=== PATIENT | female | born 1955 | race Caucasian/White ===

== ENCOUNTER → 2018-01-12 11:37 | Outpatient (CLI) | payer OTHER, SELFPAY ==
--- NOTE | 2018-01-12 | DI.RAD.S_ITS ---
PROCEDURE: XR HIP W PEL IF DONE RT 2V INDICATIONS: PAIN IN RIGHT HIP TECHNIQUE: AP pelvis with lateral view(s) of the right hip(s). COMPARISON: [facility], , PELVIS W/LAT HIP (LT) (PNL), 06/15/2007, 18:07. FINDINGS: Bones: No fractures or dislocations. Pelvic ring appears intact. No suspicious bony lesions. Bilateral total hip arthroplasties evident. Degenerative disc disease lower lumbar spine. Soft tissues: The visualized bowel gas pattern is normal. No suspicious soft tissue calcifications. IMPRESSION: 1. Bilateral total hip arthroplasty. No evidence of loosening or dislocation. Dictated by: Malcom Wiggins M.D. on 01/12/2018 at 13:27 Approved by: Malcom Wiggins M.D. on 01/12/2018 at 13:29
--- NOTE | 2018-01-12 | DI.RAD.S_ITS ---
PROCEDURE: XR KNEE RT 1TO2V INDICATIONS: PAIN IN RIGHT KNEE TECHNIQUE: 2 views of the knee were acquired. COMPARISON: None. FINDINGS: Bones: No fractures or dislocations. No suspicious bony lesions. Degenerative joint disease with narrowing and marginal spurring is most severe at the femoral patellar compartment, moderate in the weightbearing compartments. Soft tissues: No joint effusion. No suspicious soft tissue calcifications. IMPRESSION: Tricompartmental osteoarthritis. Dictated by: Malcom Wiggins M.D. on 01/12/2018 at 12:30 Approved by: Malcom Wiggins M.D. on 01/12/2018 at 12:31
== END ==
PROVIDERS: Family Provider Internal Medicine; PCP Internal Medicine; Visit Provider Physician Assistant
DX: M17.11 Unilateral primary osteoarthritis, right knee (principal); M25.551 Pain in right hip; M25.561 Pain in right knee; Z96.643 Presence of artificial hip joint, bilateral
CPT/HCPCS: 73502; 73560

== ENCOUNTER → 2018-01-23 09:13 | Outpatient (CLI) | payer OTHER, SELFPAY ==
[2018-01-23 10:12] LABS: Add Manual Diff / Slide Review NO; Basophils Percent Auto 0.7 % (0-2); Eosinophils Percent Auto 11.3 % (2-4); Hematocrit 39.8 % (36-46); Hemoglobin 13.3 g/dL (12.0-16.0); Mean Corpuscular HGB Conc 33.4 % (30-36); Mean Corpuscular Hemoglobin 29.8 PG (26-34); Mean Corpuscular Volume 89.2 fL (80-100); Monocytes Percent Auto 7.2 % (3-14); Neutrophils Absolute Auto 3300 /uL (3000-5900); Neutrophils Percent Auto 45.8 % (50-75); Platelet Count 201 X10^3/uL (150-400); Red Blood Cell Count 4.46 X10^6/uL (4.0-5.2); Red Cell Distribution Width 14.9 % (11.6-14.8); White Blood Cell Count 7.1 X10^3/uL (4.5-11.0)
[2018-01-23 10:39] LABS: Alanine Aminotransferase 50 IU/L (9-52); Albumin 3.8 g/dL (3.5-5.0); Albumin Globulin Ratio 1.3 (1.0-2.8); Alkaline Phosphatase 53 U/L (38-126); Aspartate Aminotransferase 50 IU/L (14-36); Bilirubin Total 0.4 mg/dL (0.2-1.3); Blood Urea Nitrogen 20 mg/dL (7-17); Calcium 10.1 mg/dL (8.4-10.2); Carbon Dioxide 29 mmol/L (22-32); Chloride 103 mmol/L (98-107); Estimated Glomerular Filt Rate > 60.0 mL/min (>60); Globulin 2.9 g/dL (1.7-4.1); Glucose 196 mg/dL (80-110); HEMOLYSIS < 15 (0-50); Potassium 4.2 mmol/L (3.4-5.1); Sodium 140 mmol/L (137-145); Total Protein 6.7 g/dL (6.3-8.2)
[2018-01-23 11:22] LABS: Hemoglobin A1C% w Est Avg Glu 8.5 % (4.0-6.0)
== END ==
PROVIDERS: PCP Internal Medicine; Visit Provider Internal Medicine
DX: I10 Essential (primary) hypertension (principal); E11.9 Type 2 diabetes mellitus without complications
CPT/HCPCS: 36415; 80053; 83036; 85025

== ENCOUNTER → 2018-04-17 09:38 | Outpatient (CLI) | payer OTHER, SELFPAY ==
--- NOTE | 2018-04-17 20:33 | DI.ECHO.S_ITS ---
Echocardiogram Report + + :Name: ARTURO WAITE Study Date: 04/17/2018 Height: 64 in : :[facility] Weight: 360 lb : : Gender: Female BSA: 2.5 m2 : :: 1955 Age: 62 yrs BP: 118/70 mmHg: :Reason For Study: Edema : : Performed By: Bel Torres : :Referring: YORDAN GEIGER : + + Interpretation Summary The study quality was technically difficult. The left ventricle size and wall thickness is normal. The LV is hyperdynamic. The echo findings are consistent with mild dynamic left ventricular intracavitary obstruction. The intracavitary gradient is 29 mmHg at baseline (unchanged from 2012) and slightly increases with Valsalva to 37 mmHg. The right ventricle grossly appears normal in size with probable normal systolic function. No hemodynamically significant valvular abnormality. -Comparison is made with the echocardiogram report of 07-09-12. -No significant change. Procedure: A two-dimensional transthoracic echocardiogram with color flow and Doppler was performed. The study quality was technically difficult. Comparison is made with the echocardiogram of 07-09-12. Patient was in pain due to Arthritis so exam was ended early and Definity was not used. The patient was in normal sinus rhythm during the exam. Left Ventricle: The left ventricle is normal in size. There is normal left ventricular wall thickness. The echo findings are consistent with mild dynamic left ventricular intracavitary obstruction. The intracavitary gradient is 29 mmHg at baseline and slightly increases with Valsalva to 37 mmHg. The ejection fraction is estimated to be 65-70%. There are no obvious focal wall motion abnormalities noted but poor endocardial definition reduces the sensitivity for the detection of such. Diastolic function could not be accurately assessed due to unobtainable data. Right Ventricle: The right ventricle grossly appears normal in size with probable normal systolic function. Atria: The left atrial size is normal. Right atrial size is normal. Chiari network (normal variant) is noted. The interatrial septum is intact with no evidence for an atrial septal defect. Mitral Valve: The mitral valve is not well visualized. There is mild mitral annular calcification. There is no mitral regurgitation noted. Aortic Valve: The aortic valve opens well. No aortic regurgitation is present. Tricuspid Valve: The tricuspid valve is normal in structure and function. No tricuspid regurgitation. Pulmonic Valve: The pulmonic valve is not well visualized. Great Vessels: The aortic root is normal size. The ascending aorta could not be visualized. The aortic arch is at the upper limits of normal in size. The IVC is of normal diameter and collapses greater than 50% with a sniff. This suggests a low right atrial pressure of 3 mm Hg. Pericardium/ Pleura There is no pericardial effusion. There is no pleural effusion. MMode/2D Measurements & Calculations LVIDd: 5.1 cm Ao root diam: 3.0 cm LVIDs: 2.3 cm Aortic Jxn: 2.4 cm FS: 54.8 % Ao Arch Diam (Prox Trans): 3.0 cm EPSS: 0.45 cm IVSd: 0.89 cm LVPWd: 0.78 cm LV patton. diameter/BSA (cm/m^2): 2.0 LV sys. diameter/BSA (cm/m^2): 0.92 LA dimension: 4.2 cm RA long axis: 4.2 cm LA A2 area: 20.7 cm2 RA area: 14.6 cm2 LA A4 area: 24.7 cm2 RA vol: 43.5 ml LA length (vol): 5.3 cm RA : 17.3 ml/m2 LA vol: 81.3 ml IVC diam: 1.8 cm LA vol index: 32.4 ml/m2 RVDd major: 5.0 cm RVD1 (basal): 3.5 cm RVD2 (mid): 3.5 cm Doppler Measurements & Calculations Ao V2 max: 209.9 cm/sec MV E max ronnell: 112.0 cm/sec Ao V2 mean: 141.8 cm/sec MV A max ronnell: 151.3 cm/sec Ao max P.6 mmHg MV E/A: 0.74 Ao mean P.1 mmHg Med Peak E' Ronnell: 9.4 cm/sec Ao V2 VTI: 38.5 cm E/E' med: 11.9 Lat Peak E' Ronnell: 9.1 cm/sec E/E' lat: 12.3 E/e' average: 12.1 MV dec time: 0.15 sec MV P1/2t: 42.5 msec MV P1/2t max ronnell: 104.4 cm/sec MVA(P1/2t): 5.2 cm2 _ Electronically signed by: Lionel Hopkins M.D. on Reading Physician:04/17/2018 08:33 PM
== END ==
PROVIDERS: Family Provider Internal Medicine; PCP Internal Medicine; Visit Provider Internal Medicine
DX: I50.40 Unspecified combined systolic (congestive) and diastolic (congestive) heart failure (principal)
CPT/HCPCS: C8929

== ENCOUNTER → 2020-03-23 08:53 | Outpatient (CLI) | payer MEDICARE, SELFPAY ==
--- NOTE | 2020-03-23 | DI.ECHO.S_ITS ---
[facility] +---------+ : : [address] : : : : [id number] : : : : Phone: [phone] Echocardiogram Report + + :Name: ARTURO WAITE Study Date: 03/23/2020 Height: 64 in : :[facility] Weight: 350 lb : : Gender: Female BSA: 2.5 m2 : :: 1955 Age: 64 yrs BP: 172/81 mmHg: :Reason For Study: DYSPNEA : :Ordering Physician: FELY, : :YORDAN Performed By: Samantha Snyder : :Referring: YORDAN GEIGER : + + Interpretation Summary This is a technically difficult study, particularly as it pertains to parasternal views. Next time I recommend Zscaler echocontrast. Normal sinus rhythm. Normal LV size, mild concentric LVH; normal wall motion and LV systolic function. EF is 60-65%. Moderate MAC; otherwise no significant valvular abnormalities. Compared to prior study 04/17/2018 LVOT obstruction is no longer seen. Procedure: A two-dimensional transthoracic echocardiogram with color flow and Doppler was performed. The study quality was technically difficult. Images from the parasternal window were difficult to obtain and are suboptimal in quality. Most of the acoustic windows were suboptimal, but the best imaging was obtained from the apical window. Left Ventricle: The left ventricle is normal in size. Left ventricular wall thickness is mildly increased. The ejection fraction is estimated to be 60- 65%. Diastolic parameters suggest probable normal left ventricular diastolic function and normal filling pressures. Right Ventricle: The right ventricle is normal in size and function. Atria: Both atria are normal in size. There is no Doppler evidence for an interatrial shunt. Mitral Valve: There is moderate mitral annular calcification. There is trace mitral regurgitation. Aortic Valve: The aortic valve is not well visualized. There is no aortic valve stenosis. No aortic regurgitation is present. Tricuspid Valve: The tricuspid valve is not well visualized, but is grossly normal. There is trace tricuspid regurgitation. Pulmonary artery pressures cannot be estimated because of the lack of a measurable TR jet velocity but the IVC suggests a CVP of around 3 mmHg. Pulmonic Valve: The pulmonic valve is not well visualized. There is no pulmonic valvular regurgitation. Great Vessels: The aortic root is not well visualized. The ascending aorta could not be visualized. The IVC is of normal diameter and collapses greater than 50% with a sniff. This suggests a low right atrial pressure of 3 mm Hg. Pericardium/ Pleura There is no pericardial effusion. There is no pleural effusion. MMode/2D Measurements & Calculations LVIDd: 4.2 cm LVOT diam: 2.0 cm LVIDs: 2.7 cm Ao Arch Diam (Prox Trans): 3.1 cm FS: 35.4 % IVSd: 0.98 cm LVPWd: 1.3 cm LV patton. diameter/BSA (cm/m^2): 1.7 LV sys. diameter/BSA (cm/m^2): 1.1 LA A2 area: 18.3 cm2 RA long axis: 4.5 cm LA A4 area: 16.2 cm2 RA area: 12.2 cm2 LA length (vol): 5.2 cm RA vol: 28.3 ml LA vol: 48.1 ml RA : 11.4 ml/m2 LA vol index: 19.4 ml/m2 IVC diam: 1.2 cm RVD1 (basal): 3.2 cm TAPSE: 2.4 cm Doppler Measurements & Calculations Ao V2 max: 166.6 cm/sec LVOT Max Ronnell: 107.6 cm/sec Ao V2 mean: 112.5 cm/sec LV V1 max P.6 mmHg Ao max P.1 mmHg LV V1 VTI: 25.9 cm Ao mean P.6 mmHg CLAY(I,D): 2.3 cm2 Ao V2 VTI: 36.4 cm CLAY(V,D): 2.1 cm2 sev ratio: 0.71 CLAY indexed to BSA (cm^2/m^2): 0.91 MV E max ronnell: 98.3 cm/sec PA V2 max: 102.1 cm/sec MV A max ronnell: 125.7 cm/sec PA V2 mean: 67.2 cm/sec MV E/A: 0.78 PA mean P.1 mmHg Med Peak E' Ronnell: 6.9 cm/sec PA pr(Accel): 27.6 mmHg E/E' med: 14.2 Lat Peak E' Ronnell: 7.2 cm/sec E/E' lat: 13.7 E/e' average: 14.0 MV dec time: 0.27 sec SV(LVOT): 82.1 ml Electronically signed by: Caroline Martinez M.D. on Reading Physician:03/24/2020 02:03 AM
== END ==
PROVIDERS: Family Provider Internal Medicine; PCP Internal Medicine; Referring Provider Internal Medicine; Visit Provider Internal Medicine
DX: R06.00 Dyspnea, unspecified (principal)
CPT/HCPCS: 93306

== ENCOUNTER → 2021-01-09 10:45 | Outpatient (CLI) | payer MEDICARE, SELFPAY ==
--- NOTE | 2021-01-09 | DI.US.S_ITS ---
PROCEDURE: US CAROTID DOPPLER BI INDICATIONS: RETINAL HEMORRHAGE OF BOTH EYES TECHNIQUE: Color and pulse Doppler interrogation was performed of both carotid systems, with image documentation and velocity measurements. COMPARISON: None. FINDINGS: Stenosis calculations are based on SRU (Society of Radiologists in Ultrasound) criteria. The flow velocities and the arterial waveforms are normal within both carotid arterial systems. Atherosclerotic plaque is seen on both sides, left worse than right. The estimated degree of internal carotid artery stenosis is less than 50%. Antegrade flow is confirmed within both vertebral arteries. This study is limited by body habitus. The right brachial blood pressure measures 222/91. The left brachial blood pressure measures 188/87. IMPRESSION: No hemodynamically significant stenosis is seen. Atherosclerotic plaque is noted bilaterally. Arterial hypertension measured at the time of this study. Dictated by: Maury Holliday M.D. on 01/09/2021 at 12:31 Approved by: Maury Holliday M.D. on 01/09/2021 at 12:32
== END ==
PROVIDERS: Family Provider Internal Medicine; PCP Internal Medicine; Referring Provider Internal Medicine; Visit Provider Internal Medicine
DX: H35.63 Retinal hemorrhage, bilateral (principal); I65.23 Occlusion and stenosis of bilateral carotid arteries
CPT/HCPCS: 93880

== ENCOUNTER → 2022-01-08 11:09 | Outpatient (CLI) | payer OTHER, SELFPAY ==
--- NOTE | 2022-01-08 | DI.RAD.S_ITS ---
PROCEDURE: XR SHOULDER RT MIN 2V INDICATIONS: Other chronic pain TECHNIQUE: Two views of the shoulder were acquired. COMPARISON: None. FINDINGS: Bones: No acute fractures or dislocations. No suspicious bony lesions. Visualized ribs appear intact. Moderate acromioclavicular joint osteoarthrosis. Soft tissues: No suspicious soft tissue calcifications. IMPRESSION: Moderate acromioclavicular osteoarthrosis. No acute osseous abnormality. If the symptoms persist, consider cross sectional imaging such as MRI or CT for further assessment. Dictated by: Everton Anderson M.D. on 01/08/2022 at 15:24 Approved by: Everton Anderson M.D. on 01/08/2022 at 15:28
--- NOTE | 2022-01-08 | DI.RAD.S_ITS ---
PROCEDURE: XR KNEE LT 1TO2V INDICATIONS: Other chronic pain TECHNIQUE: 1 view of the knee was acquired. COMPARISON: [facility], CR, XR KNEE RT 1TO2V, 01/12/2018, 11:36. FINDINGS: Bones: No acute fractures or dislocations. No suspicious bony lesions. Severe joint space narrowing is seen at the medial femorotibial compartment with small marginal osteophytes. Marginal osteophytes are also seen at the lateral compartment without significant joint space narrowing. The anterior compartment is not well evaluated on this single view. Soft tissues: No suspicious soft tissue calcifications. IMPRESSION: Severe medial femorotibial compartment osteoarthrosis. Dictated by: Everton Anderson M.D. on 01/08/2022 at 15:31 Approved by: Everton Anderson M.D. on 01/08/2022 at 15:32
--- NOTE | 2022-01-08 | DI.RAD.S_ITS ---
PROCEDURE: XR CERVICAL SPINE 2V OR 3V INDICATIONS: Other chronic pain TECHNIQUE: 3 view(s) of the cervical spine were acquired. COMPARISON: None. FINDINGS: Bones: No acute fracture or dislocation to the C7 level. Severe degenerative changes are present from C4-C7 including intervertebral disc space narrowing, large anterior osteophytosis, and endplate sclerosis. There is grade 2 mm C3 on C4 anterolisthesis. There is loss of the expected cervical lordosis. Soft tissues: No prevertebral soft tissue swelling. IMPRESSION: Severe degenerative change and C3-4 anterolisthesis. Dictated by: Rosetta Cox M.D. on 01/08/2022 at 16:09 Approved by: Rosetta Cox M.D. on 01/08/2022 at 16:10
--- NOTE | 2022-01-08 | DI.RAD.S_ITS ---
PROCEDURE: XR KNEE RT 1TO2V INDICATIONS: Osteoarthritis TECHNIQUE: 2 views of the knee were acquired. COMPARISON: [facility], , XR KNEE RT 1TO2V, 01/12/2018, 11:36. FINDINGS: Bones: No acute fracture or dislocation. There is severe narrowing of the medial femorotibial compartment joint space with subchondral sclerosis and marginal osteophyte formation. A subchondral osteophyte is seen at the lateral femoral condyle articular surface and there are marginal osteophytes. Severe degenerative changes are seen in the anterior compartment. Soft tissues: Small joint effusion. No suspicious soft tissue calcifications. IMPRESSION: Tricompartmental osteoarthrosis is worst in the medial and anterior compartments, and appears progressed when compared to the radiographs from 01/12/2018. Dictated by: Everton Anderson M.D. on 01/08/2022 at 15:29 Approved by: Everton Anderson M.D. on 01/08/2022 at 15:30
--- NOTE | 2022-01-08 | DI.RAD.S_ITS ---
PROCEDURE: XR HIP W PEL IF DONE BIANCA MIN 4V INDICATIONS: Other chronic pain TECHNIQUE: AP pelvis with lateral view(s) of the bilateral hip(s). COMPARISON: [facility], CR, XR HIP W PEL IF DONE RT 2V, 01/12/2018, 11:36. FINDINGS: Bones: Bilateral hip arthroplasties are in appropriate position. No evidence of a femoral stem loosening. Very minor affection around the acetabular cups bilaterally. Stable mild acetabular spurring. The visible pelvis is intact. Soft tissues: The visualized bowel gas pattern is normal. No suspicious soft tissue calcifications. IMPRESSION: 1. No evidence of femoral stem loosening of either hip prosthesis. 2. No evidence of fracture or dislocation. Dictated by: Delfina Golden M.D. on 01/08/2022 at 14:17 Approved by: Delfina Golden M.D. on 01/08/2022 at 14:19
--- NOTE | 2022-01-08 | DI.RAD.S_ITS ---
PROCEDURE: XR SACROILIAC JOINT MIN 3V INDICATIONS: Other chronic pain TECHNIQUE: 3 views of the sacroiliac joints were acquired. COMPARISON: None. FINDINGS: Bones: No bony erosions or ankylosis. No suspicious bony lesions. No fractures. Bilateral hip arthroplasty noted Soft tissues: Overlying bowel gas pattern is normal. No suspicious soft tissue densities. IMPRESSION: Unremarkable sacroiliac joint radiographs Approved by: Clive Palafox M.D. on 01/08/2022 at 16:12
== END ==
PROVIDERS: Family Provider Internal Medicine; PCP Internal Medicine; Referring Provider Internal Medicine; Visit Provider Internal Medicine
DX: M19.011 Primary osteoarthritis, right shoulder (principal); M17.0 Bilateral primary osteoarthritis of knee; M47.812 Spondylosis without myelopathy or radiculopathy, cervical region; M43.12 Spondylolisthesis, cervical region; M46.1 Sacroiliitis, not elsewhere classified; M54.2 Cervicalgia; M25.551 Pain in right hip; M25.552 Pain in left hip; M25.561 Pain in right knee; M25.562 Pain in left knee; M25.511 Pain in right shoulder; G89.29 Other chronic pain; Z96.643 Presence of artificial hip joint, bilateral
CPT/HCPCS: 72040; 72202; 73030; 73522; 73560